=== PATIENT | male | born 1975 | race Caucasian/White ===

== ENCOUNTER 2023-08-21 14:04 | Outpatient (AMB) | payer OTHER, SELFPAY ==
[2023-08-21 14:07] VITALS: BP 162/90; PULSE 71; O2SAT 99
--- NOTE | 2023-08-21 14:07 | HO.NEPHOV_ITS ---
HPI HPI Comments History of Present Illness Details 48-year-old man with a history of chroni c kidney disease in the setting of hepatitis-C and HIV. He had a kidney biopsy in 2018 which revealed secondary membranous glomerular nephritis with superimposed AIN. He was treated with steroids renal function marginally improved. He is here for follow-up. Ongoing medical problems including history of HIV on Ariza therapy, hepatitis-B which has been treated history of hepatitis-C with high viral titer and completed treatment with Mayvet History of hypertension and superimposed white coat hypertension. Home blood pressure readings have been excellent in the range of 120/80 mm Hg [facility] Family History (Updated 08/21/23 @ 14:15 by Hoa Thompson) Maternal Grandmother Hypertension Social History (Updated 08/21/23 @ 14:10 by Hoa Thompson) Alcohol intake: former Tobacco use type: Cigarette Vital Signs 08/21/23 14:07 Weight 206 lb BP 162/90 H Blood Pressure Location Lt brachial Position Sitting Pulse 71 Pulse Source Pulse Oximeter Pulse Oximetry (%) 99 Oxygen Delivery Method Room Air Physical Exam Vital Signs: Last Vital Signs Pulse 71 08/21/23 14:07 BP 162/90 H 08/21/23 14:07 Pulse Ox 99 08/21/23 14:07 Oxygen Delivery Method Room Air 08/21/23 14:07 Const General: comfortable Nutritional Appearance: well nourished Orientation/consciousness: patient oriented x3 HEENT Head: No normal to inspection Mouth: moist mucous membranes Neck Neck: Yes supple and Yes no JVD Resp Auscultation: clear to auscultation bilaterally, no rales and rub present Cardio Jugular venous distension: no JVD Palpation: no palpable S3 and no palpable S4 Heart sounds: no rubs GI Palpation (GI): Soft to palpation and nontender Percussion: No Fluid wave present General: Yes no CVA tenderness Back/Spine/Pelvis Back: no CVA tenderness Skin General skin exam: no rashes or lesions noted Neuro General: patient oriented x3 Extrem General: Yes no pedal edema and No clubbing Assessment & Plan Assessment & Plan (1) CKD (chronic kidney disease): Comment: Advanced renal disease in the setting of longstanding HIV hepatitis-C and hepatitis-B and history of membranous nephropathy and interstitial nephritis by biopsy back in 2018. Code(s): N18.9 - Chronic kidney disease, unspecified Plan: Renal function stable at baseline. No signs or symptoms of uremia. Fluid status acceptable. Goal is to slow the progression of renal disease. Continue to avoid nephrotoxic agents including NSAIDs. Periodically monitor renal function. (2) HTN (hypertension): Comment: History of superimposed white coat effect. Home blood pressure readings have been around 120/80 mm Hg. Code(s): I10 - Essential (primary) hypertension Plan: Based on home blood pressure readings no changes were made to the antihypertensive regimen. Continue to monitor blood pressure at home Stay on low-sodium diet Continue current antihypertensive medications (3) Hyperparathyroidism: Code(s): E21.3 - Hyperparathyroidism, unspecified Plan: Secondary hyperparathyroidism due to CKD Plan Currently on calcitriol. Serum calcium was normal Recheck calcium and intact PTH and adjust dose accordingly Orders: Orders Comprehensive Met. Panel Today N18.9 - Chronic kidney disease, unspecified Complete Blood Count Auto Diff Today N18.30 - Chronic kidney disease, stage 3 unspecified Basic Metabolic Panel 3 Months N18.9 - Chronic kidney disease, unspecified Coding Level of Care Code Est Pt Level 4 (50293) Diagnoses CKD (chronic kidney disease) N18.9 HTN (hypertension) I10 Hyperparathyroidism E21.3 Results Reviewed Results Reviewed: Noted Nephrology Results: No Data to Display
== END 2023-08-21 14:26 | disposition home or self-care (01) ==
PROVIDERS: PCP Internal Medicine Infectious Disease; Visit Provider Internal Medicine Hypertension Specialist
DX: I12.9 Hypertensive chronic kidney disease with stage 1 through stage 4 chronic kidney disease, or unspecified chronic kidney disease (principal); N18.9 Chronic kidney disease, unspecified; E21.3 Hyperparathyroidism, unspecified; B20 Human immunodeficiency virus [HIV] disease
CPT/HCPCS: 99214

== ENCOUNTER → 2023-08-21 14:04 | Outpatient (BNVA) | payer OTHER, SELFPAY | PROVIDERS: PCP Internal Medicine Infectious Disease; Visit Provider Internal Medicine Hypertension Specialist | DX: I12.9 Hypertensive chronic kidney disease with stage 1 through stage 4 chronic kidney disease, or unspecified chronic kidney disease (principal); N18.9 Chronic kidney disease, unspecified; E21.3 Hyperparathyroidism, unspecified | CPT/HCPCS: 99212 ==

== ENCOUNTER 2023-08-21 14:35 | Outpatient (REF) | payer OTHER, SELFPAY ==
[2023-08-21 18:17] LABS: Monocytes Percent Auto 7.5 % (2-11); SCAN SMEAR FLAG 1
[2023-08-21 18:19] LABS: Basophils Absolute Auto 0.1 X10*3/uL (0.0-0.2); Basophils Percent Auto 0.8 % (0-2); Eosinophils Absolute Auto 0.3 X10*3/uL (0.0-0.4); Eosinophils Percent Auto 3.7 % (0-4); Hematocrit 33.8 % (42.0-52.0); Hemoglobin 12.2 g/dl (14.0-18.0); Imm Gran Abs Auto 0.02 X10*3/uL (0.00-0.03); Imm Gran Pct Auto 0.3 % (0.0-0.4); Lymphocytes Absolute Auto 1.4 X10*3/uL (1.2-4.9); Lymphocytes Percent Auto 20.3 % (20-40); MANUAL DIFF FLAG SCAN; Mean Corpuscular HGB Conc 36.1 g/dl (31.0-36.0); Mean Corpuscular Hemoglobin 35.5 pg (27.0-33.0); Mean Corpuscular Volume 98.3 fL (80.0-98.0); Monocytes Absolute Auto 0.5 X10*3/uL (0.1-1.2); Neutrophils Absolute Auto 4.8 x10*3/uL (2.0-8.3); Neutrophils Percent Auto 67.4 % (45-73); PLT CLUMP 1; Red Blood Count 3.44 X10*6/uL (4.60-5.80); Red Cell Distribution Width 12.4 % (11.0-16.0)
[2023-08-21 18:29] LABS: PLT ABN DIST 1; White Blood Count 7.1 X10*3/uL (4.8-10.8)
[2023-08-21 18:31] LABS: Platelet Count 117 X10*3/uL (160-400)
[2023-08-21 18:45] LABS: SLIDE REVIEW VERIFIED
[2023-08-21 18:53] LABS: Alanine Aminotransferase 11 U/L (0-40); Albumin Level 4.1 g/dL (3.5-5.0); Alkaline Phosphatase 117 U/L (39-117); Anion Gap 11 (12-20); Aspartate Amino Transferase 9 U/L (5-37); Bilirubin Total 0.3 mg/dL (0.0-1.0); Blood Urea Nitrogen 61 mg/dL (9-16); Calcium 9.2 mg/dL (8.4-10.2); Carbon Dioxide 21 mmol/L (22-29); Chloride 107 mmol/L (96-108); Estimated Glomerular Filt Rate 11; Glucose Random 294 mg/dL (60-115); Potassium 3.9 mmol/L (3.3-5.1); Sodium 135 mmol/L (135-145); Total Protein 8.3 g/dL (6.5-8.0)
== END 2023-08-21 14:36 | disposition home or self-care (01) ==
LOC: HO.HKASLDS 14:35
PROVIDERS: Visit Provider Internal Medicine Hypertension Specialist
DX: N18.30 Chronic kidney disease, stage 3 unspecified (principal)
CPT/HCPCS: 36415; 80053; 85025

== ENCOUNTER 2023-11-20 10:59 | Outpatient (AMB) | payer OTHER, SELFPAY ==
[2023-11-20 11:04] VITALS: BP 142/70; PULSE 63; O2SAT 99; BMI 29.1
--- NOTE | 2023-11-20 11:04 | HO.NEPHOV ---
Vital Signs 11/20/23 11:04 Height 5 ft 10 in Weight 203 lb BMI 29.1 BP 142/70 H Blood Pressure Location Lt brachial Position Sitting Pulse 63 Pulse Source Pulse Oximeter Pulse Oximetry (%) 99 Oxygen Delivery Method Room Air Intake Visit Reasons: 3 mon follow up/ conf Architecture Drafter Required: Yes Architecture Drafter Name: Steven [id number] Accompanied by: Self / Same As Patient Allergies ibuprofen Allergy (Verified 11/20/23 11:06) Unknown Sulfa Antibiotics Allergy (Uncoded 07/10/23 13:29) Unknown Medication List - Last Reconciled 11/20/23 by Reji Gaspar MD abacavir 600 mg PO DAILY amlodipine 10 mg PO DAILY calcitriol 0.25 mcg PO DAILY carvedilol 6.25 mg PO BID docusate sodium 200 mg PO DAILY dolutegravir-rilpivirine 50-25 mg (Juluca) 1 tab PO DAILY insulin glargine (Lantus Solostar U-100 Insulin) units subcut insulin regular human (Novolin R FlexPen) 1 sliding scale dose subcut USEASDIRECTD isosorbide mononitrate ER 30 mg PO DAILY lamivudine 100 mg PO DAILY lisinopril 10 mg PO DAILY loratadine 10 mg PO DAILY HPI Comments Details: 48-year-old man with a history of chronic kidney disease in the setting of hepatitis-C and HIV. He had a kidney biopsy in 2018 which revealed secondary membranous glomerular nephritis with superimposed AIN. He was treated with steroids renal function marginally improved. He is here for follow-up. Ongoing medical problems including history of HIV on Ariza therapy, hepatitis-B which has been treated history of hepatitis-C with high viral titer and completed treatment with Mayvet History of hypertension and superimposed white coat hypertension. Home blood pressure readings have been excellent in the range of 120/80 mm Hg [facility] Family History Maternal Grandmother Hypertension Social History Alcohol intake: former Tobacco use type: Cigarette Physical Exam Vital Signs: Last Vital Signs Pulse 63 11/20/23 11:04 BP 142/70 H 11/20/23 11:04 Pulse Ox 99 11/20/23 11:04 Oxygen Delivery Method Room Air 11/20/23 11:04 BMI result Body Mass Index 29.1 Const General: comfortable; No acute distress Orientation/consciousness: patient oriented x3 Eyes General: appearance normal, both eyes and all related structures Visual Andrade: normal visual andrade by confrontation Neck Neck: Yes supple and Yes no JVD Resp Effort & Inspection: normal respiratory effort and respiratory effort not decreased Auscultation: rhonchi Cardio Palpation: no palpable S3 and no palpable S4 Heart sounds: no rubs GI Inspection: Yes normal to inspection Palpation (GI): Soft to palpation Percussion: Yes normal to percussion Auscultation: normal bowel sounds General: Yes no CVA tenderness Back/Spine/Pelvis Back: no CVA tenderness Skin General skin exam: no petechiae and no purpura Neuro General: patient oriented x3 and no focal motor deficits Extrem General: No clubbing and No edema Results Reviewed Nephrology Results: Hgb 12.2 g/dl (14.0-18.0) L 08/21/23 WBC 7.1 X10*3/uL (4.8-10.8) 08/21/23 Plt Count 117 X10*3/uL (160-400) L 08/21/23 Sodium 135 mmol/L (135-145) 08/21/23 Potassium 3.9 mmol/L (3.3-5.1) 08/21/23 Chloride 107 mmol/L (96-108) 08/21/23 Carbon Dioxide 21 mmol/L (22-29) L 08/21/23 BUN 61 mg/dL (9-16) H 08/21/23 Creatinine 5.45 mg/dL (0.5-1.4) H* 08/21/23 Calcium 9.2 mg/dL (8.4-10.2) 08/21/23 Assessment & Plan Assessment & Plan (1) CKD (chronic kidney disease): Comment: Advanced renal disease in the setting of longstanding HIV hepatitis-C and hepatitis-B and history of membranous nephropathy and interstitial nephritis by biopsy back in 2018. Code(s): N18.9 - Chronic kidney disease, unspecified Category: Medical Plan: Renal function stable at baseline. No signs or symptoms of uremia. Fluid status acceptable. Goal is to slow the progression of renal disease. Continue to avoid nephrotoxic agents including NSAIDs. Periodically monitor renal function. (2) HTN (hypertension): Comment: History of superimposed white coat effect. Home blood pressure readings have been around 120/80 mm Hg. Code(s): I10 - Essential (primary) hypertension Category: Medical Plan: Based on home blood pressure readings no changes were made to the antihypertensive regimen. Continue to monitor blood pressure at home Stay on low-sodium diet Continue current antihypertensive medications (3) Hyperparathyroidism: Code(s): E21.3 - Hyperparathyroidism, unspecified Category: Medical Plan: Secondary hyperparathyroidism due to CKD Plan Currently on calcitriol. Serum calcium was normal Recheck calcium and intact PTH and adjust dose accordingly Orders: Orders Complete Blood Count no Diff Today I10 - Essential (primary) hypertension, N18.9 - Chronic kidney disease, unspecified Comprehensive Met. Panel Today I10 - Essential (primary) hypertension, N18.9 - Chronic kidney disease, unspecified Coding Level of Care Code Est Pt Level 4 (76251) Diagnoses CKD (chronic kidney disease) N18.9 HTN (hypertension) I10 Hyperparathyroidism E21.3
== END 2023-11-20 11:38 | disposition home or self-care (01) ==
PROVIDERS: PCP Internal Medicine Infectious Disease; Visit Provider Internal Medicine Hypertension Specialist
DX: I12.9 Hypertensive chronic kidney disease with stage 1 through stage 4 chronic kidney disease, or unspecified chronic kidney disease (principal); N18.9 Chronic kidney disease, unspecified; B20 Human immunodeficiency virus [HIV] disease; N25.81 Secondary hyperparathyroidism of renal origin
CPT/HCPCS: 99214

== ENCOUNTER → 2023-11-20 10:59 | Outpatient (BNVA) | payer OTHER, SELFPAY | PROVIDERS: PCP Internal Medicine Infectious Disease; Visit Provider Internal Medicine Hypertension Specialist ==

== ENCOUNTER 2023-11-20 11:21 | Outpatient (REF) | payer OTHER, SELFPAY ==
[2023-11-20 19:18] LABS: Anion Gap 12 (12-20); Blood Urea Nitrogen 69 mg/dL (9-16); Calcium 9.4 mg/dL (8.4-10.2); Carbon Dioxide 23 mmol/L (22-29); Chloride 108 mmol/L (96-108); Estimated Glomerular Filt Rate 8; Glucose Random 127 mg/dL (60-115); Potassium 3.9 mmol/L (3.3-5.1); Sodium 139 mmol/L (135-145)
== END 2023-11-20 11:22 | disposition home or self-care (01) ==
LOC: HO.HKASLDS 11:21
PROVIDERS: Visit Provider Internal Medicine Hypertension Specialist
DX: N18.9 Chronic kidney disease, unspecified (principal)
CPT/HCPCS: 36415; 80048; 99212

== ENCOUNTER 2024-03-18 08:48 | Outpatient (AMB) | payer OTHER, SELFPAY ==
--- NOTE | 2024-03-18 09:01 | HO.NEPHOV ---
Vital Signs 03/18/24 09:02 Height 5 ft 10 in Weight 201 lb 4 oz BMI 28.9 BP 136/80 Blood Pressure Location Lt brachial Position Sitting Pulse 62 Pulse Source Pulse Oximeter Pulse Oximetry (%) 99 Oxygen Delivery Method Room Air Intake Visit Reasons: 4 mon follow up/ Conf Mottler Machine Feeder Required: Yes Mottler Machine Feeder Name: Laly [id number] Accompanied by: Self / Same As Patient Allergies ibuprofen Allergy (Verified 03/18/24 09:01) Unknown Sulfa Antibiotics Allergy (Uncoded 07/10/23 13:29) Unknown Medication List - Last Reconciled 03/18/24 by Reji Gaspar MD abacavir 600 mg PO DAILY amlodipine 10 mg PO DAILY calcitriol 0.25 mcg PO DAILY carvedilol 6.25 mg PO BID docusate sodium 200 mg PO DAILY dolutegravir-rilpivirine 50-25 mg (Juluca) 1 tab PO DAILY insulin glargine (Lantus Solostar U-100 Insulin) units subcut insulin regular human (Novolin R FlexPen) 1 sliding scale dose subcut USEASDIRECTD isosorbide mononitrate ER 30 mg PO DAILY lamivudine 100 mg PO DAILY lisinopril 10 mg PO DAILY loratadine 10 mg PO DAILY HPI Comments Details: 48-year-old man with a history of chronic kidney disease in the setting of hepatitis-C and HIV. He had a kidney biopsy in 2018 which revealed secondary membranous glomerular nephritis with superimposed AIN. He was treated with steroids renal function marginally improved. He is here for follow-up. Ongoing medical problems including history of HIV on Ariza therapy, hepatitis-B which has been treated history of hepatitis-C with high viral titer and completed treatment with Mayvet History of hypertension and superimposed white coat hypertension. Home blood pressure readings have been excellent in the range of 120/80 mm Hg COUNTS INCLUDE 234 BEDS AT [facility] Family History Maternal Grandmother Hypertension Social History Alcohol intake: former Tobacco use type: Cigarette Physical Exam Vital Signs: Last Vital Signs Pulse 62 03/18/24 09:02 BP 136/80 03/18/24 09:02 Pulse Ox 99 03/18/24 09:02 Oxygen Delivery Method Room Air 03/18/24 09:02 BMI result Body Mass Index 28.9 Const General: comfortable; No acute distress Orientation/consciousness: patient oriented x3 Eyes General: appearance normal, both eyes and all related structures Visual Andrade: normal visual andrade by confrontation Neck Neck: Yes supple and Yes no JVD Resp Effort & Inspection: normal respiratory effort and respiratory effort not decreased Auscultation: rhonchi Cardio Palpation: no palpable S3 and no palpable S4 Heart sounds: no rubs GI Inspection: Yes normal to inspection Palpation (GI): Soft to palpation Percussion: Yes normal to percussion Auscultation: normal bowel sounds General: Yes no CVA tenderness Back/Spine/Pelvis Back: no CVA tenderness Skin General skin exam: no petechiae and no purpura Neuro General: patient oriented x3 and no focal motor deficits Extrem General: No clubbing and No edema Results Reviewed Nephrology Results: Hgb 12.2 g/dl (14.0-18.0) L 08/21/23 WBC 7.1 X10*3/uL (4.8-10.8) 08/21/23 Plt Count 117 X10*3/uL (160-400) L 08/21/23 Sodium 139 mmol/L (135-145) 11/20/23 Potassium 3.9 mmol/L (3.3-5.1) 11/20/23 Chloride 108 mmol/L (96-108) 11/20/23 Carbon Dioxide 23 mmol/L (22-29) 11/20/23 BUN 69 mg/dL (9-16) H 11/20/23 Creatinine 6.92 mg/dL (0.5-1.4) H* 11/20/23 Calcium 9.4 mg/dL (8.4-10.2) 11/20/23 Assessment & Plan Assessment & Plan (1) CKD (chronic kidney disease): Comment: Advanced renal disease in the setting of longstanding HIV hepatitis-C and hepatitis-B and history of membranous nephropathy and interstitial nephritis by biopsy back in 2018. Code(s): N18.9 - Chronic kidney disease, unspecified Category: Medical Plan: Renal function stable at baseline. No signs or symptoms of uremia. Fluid status acceptable. Goal is to slow the progression of renal disease. Continue to avoid nephrotoxic agents including NSAIDs. Periodically monitor renal function. (2) HTN (hypertension): Comment: History of superimposed white coat effect. Home blood pressure readings have been around 120/80 mm Hg. Code(s): I10 - Essential (primary) hypertension Category: Medical Plan: Based on home blood pressure readings no changes were made to the antihypertensive regimen. Continue to monitor blood pressure at home Stay on low-sodium diet Continue current antihypertensive medications (3) Hyperparathyroidism: Code(s): E21.3 - Hyperparathyroidism, unspecified Category: Medical Plan: Secondary hyperparathyroidism due to CKD Plan Currently on calcitriol. Serum calcium was normal Recheck calcium and intact PTH and adjust dose accordingly Orders: Orders UA and rflx microscopic Today N18.9 - Chronic kidney disease, unspecified Complete Blood Count Auto Diff Today N18.9 - Chronic kidney disease, unspecified Comprehensive Met. Panel Today N18.9 - Chronic kidney disease, unspecified Parathyroid Hormone Intact Today N18.9 - Chronic kidney disease, unspecified Total Protein Urine Random Today N18.9 - Chronic kidney disease, unspecified Creatinine Urine Today N18.9 - Chronic kidney disease, unspecified Coding Level of Care Code Est Pt Level 4 (47283) Diagnoses CKD (chronic kidney disease) N18.9 HTN (hypertension) I10 Hyperparathyroidism E21.3
[2024-03-18 09:02] VITALS: BP 136/80; PULSE 62; O2SAT 99; BMI 28.9
== END 2024-03-18 09:29 | disposition home or self-care (01) ==
PROVIDERS: PCP Internal Medicine Infectious Disease; Visit Provider Internal Medicine Hypertension Specialist
DX: I12.9 Hypertensive chronic kidney disease with stage 1 through stage 4 chronic kidney disease, or unspecified chronic kidney disease (principal); N18.9 Chronic kidney disease, unspecified; E21.3 Hyperparathyroidism, unspecified; Z21 Asymptomatic human immunodeficiency virus [HIV] infection status; Z86.19 Personal history of other infectious and parasitic diseases
CPT/HCPCS: 99214

== ENCOUNTER → 2024-03-18 08:48 | Outpatient (BNVA) | payer OTHER, SELFPAY | PROVIDERS: PCP Internal Medicine Infectious Disease; Visit Provider Internal Medicine Hypertension Specialist ==

== ENCOUNTER 2024-03-18 09:16 | Outpatient (REF) | payer OTHER, SELFPAY ==
[2024-03-18 18:11] LABS: MANUAL DIFF FLAG NO
[2024-03-18 18:13] LABS: Appearance Urine Clear; Color Urine Yellow; Glucose Urine UA Negative (Negative); Leukocyte Esterase Urine Moderate (2+) (Negative); Nitrite Urine Negative (Negative); PH 5.5 (5.0-9.0); UMIC TRIGGER UA YES; Urine Blood Small (1+) (Negative); Urine Ketones Negative (Negative); Urine Protein 100 (2+) mg/dL (Neg-Trace)
[2024-03-18 18:23] LABS: Basophils Absolute Auto 0.1 X10*3/uL (0.0-0.2); Basophils Percent Auto 0.8 % (0-2); Eosinophils Absolute Auto 0.2 X10*3/uL (0.0-0.4); Eosinophils Percent Auto 3.3 % (0-4); Hematocrit 35.4 % (42.0-52.0); Hemoglobin 12.9 g/dl (14.0-18.0); Imm Gran Abs Auto 0.01 X10*3/uL (0.00-0.03); Imm Gran Pct Auto 0.1 % (0.0-0.4); Lymphocytes Absolute Auto 1.3 X10*3/uL (1.2-4.9); Lymphocytes Percent Auto 17.6 % (20-40); Mean Corpuscular HGB Conc 36.4 g/dl (31.0-36.0); Mean Corpuscular Hemoglobin 36.1 pg (27.0-33.0); Mean Corpuscular Volume 99.2 fL (80.0-98.0); Mean Platelet Volume 12.6 fL (9.4-12.4); Monocytes Absolute Auto 0.6 X10*3/uL (0.1-1.2); Monocytes Percent Auto 7.7 % (2-11); Neutrophils Absolute Auto 5.1 x10*3/uL (2.0-8.3); Neutrophils Percent Auto 70.5 % (45-73); Platelet Count 106 X10*3/uL (160-400); Red Blood Count 3.57 X10*6/uL (4.60-5.80); Red Cell Distribution Width 11.9 % (11.0-16.0); White Blood Count 7.3 X10*3/uL (4.8-10.8)
[2024-03-18 18:27] LABS: Bacteria Urine 1+ (None Seen); Hyaline Casts Urine 0-2 /LPF (0-2); RBC Urine 0-2 /HPF (0-2); Squamous Epithelial Cell Urine 0-2 /HPF (0-2); WBC Urine 21-50 /HPF (0-5)
[2024-03-18 19:01] LABS: Total Protein Urine Random 56 mg/dL (<12)
[2024-03-18 19:19] LABS: Albumin Level 4.1 g/dL (3.5-5.0); Anion Gap 15 (12-20); Bilirubin Total 0.5 mg/dL (0.0-1.0); Blood Urea Nitrogen 60 mg/dL (9-16); Carbon Dioxide 19 mmol/L (22-29); Chloride 110 mmol/L (96-108); Glucose Random 215 mg/dL (60-115); Potassium 3.6 mmol/L (3.3-5.1); Sodium 140 mmol/L (135-145)
[2024-03-18 19:19] LABS: Creatinine Urine 71.33 mg/dL
[2024-03-18 19:20] LABS: Alanine Aminotransferase 10 U/L (0-40); Alkaline Phosphatase 104 U/L (39-117); Aspartate Amino Transferase 9 U/L (5-37)
[2024-03-18 19:22] LABS: Estimated Glomerular Filt Rate 9
[2024-03-19 05:25] LABS: Parathyroid Hormone Intact 523.2 pg/mL (8.7-77.1)
== END 2024-03-18 09:17 | disposition home or self-care (01) ==
LOC: HO.HKASLDS 09:16
PROVIDERS: Visit Provider Internal Medicine Hypertension Specialist
DX: I12.9 Hypertensive chronic kidney disease with stage 1 through stage 4 chronic kidney disease, or unspecified chronic kidney disease (principal); N18.9 Chronic kidney disease, unspecified; B20 Human immunodeficiency virus [HIV] disease; B18.2 Chronic viral hepatitis C; Z86.19 Personal history of other infectious and parasitic diseases; E23.1 Drug-induced hypopituitarism; Z79.899 Other long term (current) drug therapy
CPT/HCPCS: 36415; 80053; 81001; 82570; 83970; 84156; 85025; 85027; 99212